=== PATIENT | male | born 1995 ===

== ENCOUNTER 2018-09-06 23:23 | Emergency (ER) | payer SELFPAY ==
[~2018-09-06] VITALS: Ht 177.8 cm; Wt 68.0 kg
[2018-09-06] MEDS ORDERED: ONDANSETRON 4 MG/2 ML (SDV) Z0FRAN ONE (23:24)
--- NOTE | 2018-09-06 23:24 | NUR ---
2324: PT ARRIVAL [facility] TO ROOM #1. 2327: 4MG ZOFRAN 2329 20MG ETOMIDATE 2328: 20G IV TO RT FA INITIATED BY OG DANIELS 2330: 30MG ROCURONIUM 2330: 16FR RAMIREZ CATHETER & URINE SAMPLE OBTAINED 2332: INTUBATED BY DR. MUNOZ VIA 7.5 ET TUBE 24 @ TEETH 2332: WARMED NS BOLUS INITIATED. WARM BLANKETS APPLIED 2337: DRIPRIVAN INFUSION INITATED @ 30MCG/KG/MIN 2339 16FR OG PLACED WITH NO OUTPUT 2339: LOG ROLLED PT WHILE MAINTAINING CERICAL SPINAL IMMOBILIZATION. RECTAL EXAM PREFORMED BY PROVIDER INDICATES NO RECTAL SPHINCTER TONE. 2351: SPUTUM CULTURE OBTAIN VIA ET SUCTION BY RT NOEL. 2358: DRIPRIVAN DECREASED TO 10MCG/KG/MIN. 0003: SECOND LITER WARMED NS BOLUS INITIATED. 0007: [facility] ARRIVAL TO ED FOR PT TRANSFER TO [facility] ER FOR HIGHER LEVEL OF CARE.
[2018-09-06] MEDS ORDERED: ETOMIDATE IV SOLN 20 MG/10 ML VIAL IV ONE (23:28)
[2018-09-06] MEDS ORDERED: ROCURONIUM 10 MG/ML 5 ML SYRINGE IV ONE (23:28)
[2018-09-06] MEDS ORDERED: PROPOFOL DRIP (ICU) 100 ML IV ONE (23:30)
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
--- OUTSIDE RECORDS SUMMARY | 2018-09-06 23:31 | XMS REPORT ---
Author Author Migration, Doctor Organization [facility] Address Unknown Phone Unavailable Care Team Providers Care Division Officer Weapons Department Name Role Phone Migration, Doctor Unavailable Unavailable PROBLEMS Type Condition ICD9-CM Code MEP60-DV Code Onset Dates Condition Status SNOMED Code Problem Cough 786.2 Active 31420203 Problem Acute pharyngitis 462 Active 475430147 Problem Other general medical examination for administrative purposes V70.3 Active [id number] ALLERGIES No Information ENCOUNTERS Encounter Location Date Diagnosis [facility] [id number] [place] [address] [phone] September, Dental examination V72.2 [facility] [id number] [place] [address] [phone] Aug, [facility] [id number] [place] [address] [phone] Aug, [facility] [id number] [place] [address] [phone] Mar, [facility] [id number] [place] [address] [phone] Mar, [facility] [address] [phone] May, [facility] [id number] [place] [phone] May, IMMUNIZATIONS No Known Immunizations SOCIAL HISTORY Never Assessed REASON FOR VISIT EMR[place] [place] VITAL SIGNS MEDICATIONS Medication Instructions Dosage Frequency Start Date End Date Duration Status Loratadine 10 mg 1 tablet by Oral route 1 time per day for 7 daystake one daily x 7 days and then prn as needed for allergy sx May, Active RESULTS No Results PROCEDURES No Known procedures INSTRUCTIONS MEDICATIONS ADMINISTERED No Known Medications
[2018-09-06 23:32] VITALS: BP 97/58
[2018-09-06 23:42] LABS: HEMOGLOBIN 16.9 G/DL (13.3-17.7); MEAN PLATELET VOLUME 10.8 FL (7.4-10.4); RED CELL DISTRIBUTION WIDTH 12.9 % (10.0-14.5); WHITE BLOOD COUNT 19.5 10^3/uL (4.3-11.0)
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
[2018-09-06] MEDS ORDERED: NOREPINEPHRINE 4 MG/4 ML (LEVOPHED) AMP IV ONE (23:55)
[2018-09-06] MEDS ORDERED: NS IV 1000 ML 1,000 ML ONE (23:56)
[2018-09-06] MEDS ORDERED: NS (IVPB) 0 ML ONE (23:56)
[2018-09-06 23:57] LABS: ALANINE AMINOTRANSFERASE 22 U/L (0-55); ALBUMIN 5.1 GM/DL (3.2-4.5); ALKALINE PHOSPHATASE 97 U/L (40-136); BILIRUBIN,DIRECT 0.3 MG/DL (0.0-0.3); BILIRUBIN,INDIRECT 0.3 MG/DL; BILIRUBIN,TOTAL 0.6 MG/DL (0.1-1.0); BUN/CREATININE RATIO 9; CALCIUM 10.5 MG/DL (8.5-10.1); CHLORIDE 102 MMOL/L (98-107); CREATININE SERUM 1.58 MG/DL (0.60-1.30); GFR ESTIMATED 55; GLUCOSE 154 MG/DL (70-105); POTASSIUM 3.3 MMOL/L (3.6-5.0); SODIUM 142 MMOL/L (135-145); TOTAL PROTEIN 8.4 GM/DL (6.4-8.2)
[2018-09-07 00:08] LABS: CARBON DIOXIDE 8 MMOL/L (21-32)
[2018-09-07 00:25] VITALS: BP 94/45
[2018-09-07] MEDS ORDERED: NS IV 1000 ML 1,000 ML ONE (01:17)
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
== END 2018-09-07 00:25 | disposition home or self-care (01) ==
LOC: EDUNIT# 23:23 → ER 23:27
DX: S06.9X0A Unspecified intracranial injury without loss of consciousness, initial encounter (principal); S10.91XA Abrasion of unspecified part of neck, initial encounter; S90.412A Abrasion, left great toe, initial encounter; S90.811A Abrasion, right foot, initial encounter; J98.8 Other specified respiratory disorders; R40.2112 Coma scale, eyes open, never, at arrival to emergency department; R40.2212 Coma scale, best verbal response, none, at arrival to emergency department; R40.2312 Coma scale, best motor response, none, at arrival to emergency department; V29.40XA Motorcycle driver injured in collision with unspecified motor vehicles in traffic accident, initial encounter
CPT/HCPCS: 36415; 71045; 72170; 80048; 80076; 80320; 85027; 86850; 86900; 86901; 87070; 87205; 94799; 99291